=== PATIENT | female | born 1950 | race Caucasian/White ===

== ENCOUNTER 2019-02-17 07:22 | Day surgery (SDC) | payer MEDICARE, OTHER ==
[2019-02-17] MEDS ORDERED: Midazolam 1 MG/ML 2 ML SDV ONE (07:41)
[2019-02-17] MEDS ORDERED: fentaNYL 100 MCG/2 ML SDV ONE (07:41)
[2019-02-17] MEDS ORDERED: Propofol 200 MG/20 ML SDV ONE (07:41)
[2019-02-17] MEDS ORDERED: Dextrose 5%-Lactated Ringers 1,000 ML IV SCH (08:00)
--- NOTE | 2019-02-26 09:56 | OR ---
DATE OF PROCEDURE: 02/17/2019 SURGEON: Omer Lozano MD PREOPERATIVE DIAGNOSIS: Personal history of colon polyps. POSTOPERATIVE DIAGNOSIS: Normal screening colonoscopy. OPERATIVE PROCEDURE: Screening colonoscopy. ANESTHESIA: IV sedation. INDICATIONS FOR PROCEDURE: This is a 68-year-old female presenting for followup colonoscopy. She has a personal history of colon polyps in the past. The plan was to proceed with a flexible colonoscopy with biopsies and/or polypectomy as indicated. Potential risks including bleeding and perforation were discussed, and the patient wishes to proceed. DETAILS OF PROCEDURE: The patient was taken to the operating room and placed in the left lateral decubitus position. IV sedation was administered after which the initial digital rectal exam was performed and was unremarkable. The scope was then passed into the rectum with retroflexion revealing uncomplicated hemorrhoidal columns. The scope was then eventually passed to the level of the cecum. The prep was quite good with only a small amount of liquid stool being present. To that level, no abnormalities were noted. Specifically, there were no areas of colitis, no areas of diverticular disease, no polyps or other signs of neoplasia. The scope was then withdrawn and the above findings reconfirmed, and the procedure then concluded. The patient was taken to the recovery room in satisfactory condition. There were no evident complications. Recommendation would be to repeat the colonoscopy in 5 years, given the personal history of previous colon polyps. Omer Lozano MD /[id number]
== END 2019-02-17 11:51 | disposition home or self-care (01) ==
LOC: JP.SDS 07:22
PROVIDERS: ATTEND Surgery
DX: Z12.11 Encounter for screening for malignant neoplasm of colon (principal); K64.9 Unspecified hemorrhoids; Z86.010 Personal history of colon polyps
CPT/HCPCS: G0121; J2250; J2704; J3010; J7042; J7121

== ENCOUNTER 2019-04-23 14:41 | Emergency (ER) | payer MEDICARE, OTHER ==
[2019-04-23] MEDS ORDERED: Acetaminophen/oxyCODONE 325-5 MG Tab PO STA (15:10)
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
--- NOTE | 2019-04-24 08:50 | CR ---
Hand Comp Min 3V Lt CLINICAL HISTORY: Injury FINDINGS: There is no acute fracture or dislocation of the hand. There is some osteoarthritic change at the trapezium articulations. IMPRESSION: No fracture Osteoarthritis
== END 2019-04-23 16:03 | disposition home or self-care (01) ==
LOC: JP.ED 14:41
DX: S60.222A Contusion of left hand, initial encounter (principal); E03.9 Hypothyroidism, unspecified; Z79.890 Hormone replacement therapy; V47.5XXA Car driver injured in collision with fixed or stationary object in traffic accident, initial encounter; Y92.410 Unspecified street and highway as the place of occurrence of the external cause
CPT/HCPCS: 73130; 99283; A9270

== ENCOUNTER 2020-01-17 11:55 | Emergency (ER) | payer MEDICARE, OTHER ==
--- NOTE | 2020-01-17 12:40 | EDM.PDOC ---
ED HPI GENERAL MEDICAL PROBLEM - General Chief Complaint: Eye Problems Stated Complaint: BLEEDING INTO EYELID Time Seen by Provider: 01/17/20 12:40 Source of Information: Reports: Patient, RN Notes Reviewed History Limitations: Reports: No Limitations - History of Present Illness INITIAL COMMENTS - FREE TEXT/NARRATIVE: Hyun presents today with complaints of bleeding in her right upper eye lid. She states she did not sleep well last night and when she got up at 0730 today she noticed bruising to her right upper eye lid that was not there when she went to bed. She denies any change in vision, nausea, vomiting, change in bowel/bladder. She states she has had some headaches that are more behind her right eye at times and has been taking asa 325mg - two tablets as needed the past few weeks. She denies difficulty ambulating, she states headaches come and go, asa usually helps them. She denies any numbness, tingling, ringing in her ears or other concerns. Right Eye Pain Score (Numeric/FACES): 1 - Related Data Allergies Allergy/AdvReac Type Severity Reaction Status Date / Time No Known Allergies Allergy Verified 01/17/20 12:27 Home Meds: Home Meds Albuterol Sulfate [Albuterol Sulfate Hfa] 2 puff INH Q4HR PRN 02/13/19 [History] Fluticasone Propionate [Flonase] 2 spray INH DAILY 02/13/19 [History] Fluticasone/Salmeterol [Advair 100-50] 2 puff INH DAILY 02/13/19 [History] Levothyroxine Sodium [Synthroid] 88 mcg PO DAILY 02/13/19 [History] Cyclobenzaprine HCl 5 mg PO TID PRN 02/17/19 [History] Triazolam 0.25 mg PO BEDTIME 01/17/20 [History] Past Medical History HEENT History: Reports: Impaired Vision, Other (See Below) Other HEENT History: Intermittent ear aches Cardiovascular History: Reports: High Cholesterol Respiratory History: Reports: Bronchitis, Recurrent 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: Musculoskeletal History: Reports: Other (See Below) Other Musculoskeletal History: R knee pain Neurological History: Reports: Other (See Below) Psychiatric History: Reports: Anxiety Endocrine/Metabolic History: Reports: Hypothyroidism Dermatologic History: Reports: Eczema - Infectious Disease History Infectious Disease History: Reports: Chicken Pox, Measles - Past Surgical History HEENT Surgical History: Reports: Adenoidectomy, Oral Surgery, Tonsillectomy Other HEENT Surgeries/Procedures: TOOTH EXTRACTION Cardiovascular Surgical History: Reports: None Respiratory Surgical History: Reports: None GI Surgical History: Reports: Colonoscopy Female Surgical History: Reports: Breast Biopsy Endocrine Surgical History: Reports: None Neurological Surgical History: Reports: None Musculoskeletal Surgical History: Reports: Other (See Below) Other Musculoskeletal Surgeries/Procedures:: RIGHT KNEE TORN MENISCUS Oncologic Surgical History: Reports: Biopsy of Breast Dermatological Surgical History: Reports: None Social & Family History - Family History Family Medical History: Noncontributory - Tobacco Use Tobacco Use Status *Q: Never Tobacco User Second Hand Smoke Exposure: No - Caffeine Use Caffeine Use: Reports: Coffee - Alcohol Use Days Per Week of Alcohol Use: 3 Number of Drinks Per Day: 1 Total Drinks Per Week: 3 - Recreational Drug Use Recreational Drug Use: No ED ROS GENERAL - Review of Systems Review Of Systems: See Below Constitutional: Reports: No Symptoms HEENT: Reports: Glasses, Other (bruising to right upper eye lid). Denies: Contact Lenses, Ear Discharge, Ear Pain, Eye Discharge, Eye Pain, Hearing Loss, Vision Change Respiratory: Reports: No Symptoms Cardiovascular: Reports: No Symptoms Endocrine: Reports: No Symptoms GI/Abdominal: Reports: No Symptoms : Reports: No Symptoms Musculoskeletal: Reports: No Symptoms Skin: Reports: Bruising (right upper eye lid) Neurological: Reports: No Symptoms Psychiatric: Reports: No Symptoms Hematologic/Lymphatic: Reports: No Symptoms Immunologic: Reports: No Symptoms ED EXAM GENERAL W FULL EYE - Physical Exam Exam: See Below Exam Limited By: No Limitations General Appearance: Alert, WD/WN, No Apparent Distress Eye Exam: Bilateral Eye: Bleeding (none noted), EOMI, Normal Inspection, Papilledema (none noted), PERRL, Vision Changes (No vision changes, however in need of exam) Visual Acuity (R) 20/: 40 Visual Acuity (L) 20/: 50 With Correction: Yes Eyelids: Right: Ecchymosis (inner aspect of right eye, does not cross to middle of eye lid), Left: Normal Appearance, Bilateral: Lid Everted for Exam Conjunctiva & Sclera: Bilateral: Normal Appearance Cornea Exam: Bilateral: Normal Appearance Extraocular Movements: Bilateral: Intact Pupils: Normal Accommodation Pupillary Size: Bilateral: 3 mm Pupillary Reaction: Bilateral: Brisk Anterior Chamber: Bilateral: Normal Appearance Posterior Chamber: Bilateral: Normal Funduscopic Ears: Normal External Exam, Normal Canal, Hearing Grossly Normal, Normal TMs Nose: Normal Inspection, Normal Mucosa, No Blood Throat/Mouth: Normal Inspection, Normal Lips, Normal Teeth, Normal Gums, Normal Oropharynx, Normal Voice, No Airway Compromise Head: Atraumatic, Normocephalic Neck: Normal Inspection, Supple, Non-Tender, Full Range of Motion. No: Lymphadenopathy (R), Lymphadenopathy (L) Respiratory/Chest: No Respiratory Distress, Lungs Clear, Normal Breath Sounds, No Accessory Muscle Use, Chest Non-Tender. No: Crackles, Rales, Rhonchi, Wheezing Cardiovascular: Normal Peripheral Pulses, Regular Rate, Rhythm, No Edema, No Gallop, No Murmur, No Rub Extremities: Normal Inspection, Normal Range of Motion, Non-Tender, No Pedal Edema, Normal Capillary Refill Neurological: Alert, Oriented, CN II-XII Intact, Normal Cognition, Normal Gait, Normal Reflexes, No Motor/Sensory Deficits Psychiatric: Normal Affect, Normal Mood Skin Exam: Warm, Dry, Intact, Normal Color, No Rash Lymphatic: No Adenopathy Course - Vital Signs Last Recorded V/S: Last Vital Signs Temp 36.6 C 01/17/20 12:36 Pulse 97 01/17/20 12:36 Resp 16 01/17/20 12:36 BP 157/76 H 01/17/20 12:36 Pulse Ox 97 01/17/20 12:36 Departure - Departure Time of Disposition: 13:01 Disposition: Home, Self-Care 01 Condition: Good Clinical Impression: Traumatic ecchymosis of right eyelid - Discharge Information *PRESCRIPTION DRUG MONITORING PROGRAM REVIEWED*: Not Applicable *COPY OF PRESCRIPTION DRUG MONITORING REPORT IN PATIENT PADMINI: Not Applicable Instructions: Eye Contusion, [id number] Referrals: Anuel Scott [Primary Care Provider] - Forms: ED Department Discharge Additional Instructions: Stop use of aspirin. May use ice as needed for the right eye lid. Follow up with optometry for vision/eye screening. Take ibuprofen 600mg by mouth three times a day as needed for headache or take naproxen 500mg by mouth twice a day for headache. Follow up with primary as needed for ongoing headaches after eye exam and if no improvement in 14 days. Return as needed. Sepsis Event Note (ED) - Evaluation Sepsis Screening Result: No Definite Risk - Focused Exam Vital Signs: Vital Signs Temp Pulse Resp BP Pulse Ox 01/17/20 12:36 36.6 C 97 16 157/76 H 97 - Assessment/Plan Assessment:: Traumatic ecchymosis of right eyelid Plan: Traumatic ecchymosis of right eyelid Stop use of aspirin. May use ice as needed for the right eye lid. Follow up with optometry for vision/eye screening. Take ibuprofen 600mg by mouth three times a day as needed for headache or take naproxen 500mg by mouth twice a day for headache. Follow up with primary as needed for ongoing headaches after eye exam and if no improvement in 14 days.
== END 2020-01-17 13:15 | disposition home or self-care (01) ==
LOC: JP.ED 11:55
DX: S00.11XA Contusion of right eyelid and periocular area, initial encounter (principal); E03.9 Hypothyroidism, unspecified; Z90.49 Acquired absence of other specified parts of digestive tract; X58.XXXA Exposure to other specified factors, initial encounter
CPT/HCPCS: 99283

== ENCOUNTER 2024-04-03 07:39 | Day surgery (SDC) | payer MEDICARE, OTHER ==
[~2024-04-03 07:39] MED LIST: Propofol 200 MG/20 ML SDV ONE; fentaNYL 100 MCG/2 ML SDV ONE
[2024-04-03] MEDS: Lactated Ringers 1,000 ML IV SCH (08:07)
[2024-04-03] MEDS ORDERED: Propofol 200 MG/20 ML SDV ONE (11:57)
== END 2024-04-03 12:19 | disposition home or self-care (01) ==
LOC: JP.SDS 07:39
PROVIDERS: ATTEND Family Medicine
DX: Z12.11 Encounter for screening for malignant neoplasm of colon (principal); Z80.0 Family history of malignant neoplasm of digestive organs; J45.909 Unspecified asthma, uncomplicated
CPT/HCPCS: G0105; J2704; J3010; J7120; 00812-QZ; 45378